=== PATIENT | male | born 1935 | race Caucasian/White ===

== ENCOUNTER 2018-08-03 21:30 | Inpatient (IN) | payer OTHER, MEDICARE ==
--- NOTE | 2018-08-03 21:46 | EDPHY ---
H & P Stated Complaint: [facility] fall down unknown #[id number]?. L shoulder pain, unsteady Time Seen by Provider: 08/03/18 21:45 HPI/ROS: HPI CHIEF COMPLAINT: Mechanical trip and fall, left shoulder pain. HISTORY OF PRESENT ILLNESS: 83-year-old male, who has unsteady gait at baseline per his , presents emergency room after was taking out the trash this evening at his backyard, which requires stairs. Unclear exactly what happened but the patient reports that he tripped over something. He fell backwards landing on his left shoulder. His main complaint is left shoulder pain. His tried to get him up off the ground however was unable to do so so 911 EMS was called. They brought him here to the emergency room. The patient denies any chest pain or shortness of breath, denies syncope. He reports that he slipped on the stair. He reports that he was going back inside up the stairs and got to the 1st stair and slipped. He did fall backwards with head strike. Past Medical History: Denies significant medical history except for hypertension, hyperlipidemia, some cognitive decline Past Surgical History: Denies recent surgery Social History: Lives locally at bedside. No drugs alcohol tobacco. Family History: Noncontributory ROS REVIEW OF SYSTEMS: 10 Systems were reviewed and negative with the exception of the elements mentioned in the history of present illness. Exam Constitutional triage nursing summary reviewed, vital signs reviewed, awake/ alert. Eyes normal conjunctivae and sclera, EOMI, PERRLA. HENT head and neck are atraumatic on exam moist mucus membranes, no epistaxis, neck supple/ no meningismus, no raccoon eyes. Respiratory clear to auscultation bilaterally, normal breath sounds, no respiratory distress, no wheezing. Cardiovascular rate normal, regular rhythm, no murmur, no edema, distal pulses normal. Gastrointestinal soft, non-tender, no rebound, no guarding, normal bowel sounds, no distension, no pulsatile mass. Genitourinary no CVA tenderness. Musculoskeletal Left shoulder: Neurovascularly intact with full range of motion care, good distal pulse, good cap refill, abrasion left posterior shoulder, with mild tender palpation over the left posterior scapula, additionally abrasion left upper arm humerus region, posterior, without any crepitus, full range of motion present, no midline vertebral tenderness, full range of motion, no calf swelling , no tenderness of extremities, no meningismus, good pulses, neurovascularly intact. Skin pink, warm, & dry, no rash, skin atraumatic. Neurologic awake, alert and oriented x 3, AAOx3, moves all 4 extremities equally, motor intact, sensory intact, CN II-XII intact, normal cerebellar, normal vision, normal speech. Psychiatric normal mood/affect. Heme/Lymph/Immune no lymphadenopathy. Differential Diagnosis: Includes but is not limited to in a particular order mechanical trip and fall, closed head injury, cervical spine injury, shoulder fracture, shoulder contusion Medical Decision Making: Plan for this patient CT scan head without contrast and a CT cervical spine without contrast, x-ray left shoulder. Re-evaluate Re-evaluation: CT scan head without contrast and CT cervical spine without contrast for trauma , fall, negative for acute traumatic injury called to me by Dr. Malik. Left shoulder x-ray negative for acute fracture. However seen on left shoulder x-ray there is a 6th left rib fracture. 2330, attempt to get patient up out of bed and walk on his own however he is unable to do so without great assistance. Patient is a fall risk. [facility] does not feel comfortable taking her home. Patient will need to be admitted the hospital overnight for observation. Chest x-ray reviewed shows a 4th 5th and 6th rib fracture. Left-sided. No pneumothorax I spoke with the hospitalist service Dr. Duarte agrees to admit EKG: Time of EKG 07/19/2045, sinus rhythm rate of 71, left anterior fascicular block. No significant ST elevation. Source: Patient - Personal History Current Tetanus/Diphtheria Vaccine: Unsure Current Tetanus Diphtheria and Acellular Pertussis (TDAP): Unsure - Medical/Surgical History Hx Asthma: No Hx Chronic Respiratory Disease: No Hx Diabetes: No Hx Cardiac Disease: No Hx Renal Disease: No Hx Cirrhosis: No Hx Alcoholism: No Hx HIV/AIDS: No Hx Splenectomy or Spleen Trauma: No Other PMH: HTN, high cholesterol - Social History Smoking Status: Never smoked Constitutional: Initial Vital Signs Temperature (C) 36.8 C 08/03/18 21:36 Heart Rate 77 08/03/18 21:36 Respiratory Rate 20 08/03/18 21:36 Blood Pressure 175/71 H 08/03/18 21:36 O2 Sat (%) 93 04/04/19 21:36 O2 Delivery Mode Room Air O2 (L/minute) 2 Allergies/Adverse Reactions: No Known Allergies Allergy (Unverified 08/03/18 21:34) Home Medications: Medication Instructions Recorded Ezetimibe [Zetia] 10 mg PO DAILY 08/03/18 Cyanocobalamin [Vitamin B12 (*)] 1,000 mcg PO DAILY@18 08/04/18 Docusate Sodium [Colace 100 MG (*)] 200 mg PO DAILY 08/04/18 Eye Drop Unk Name 1 drop EACHEYE PRN PRN 08/04/18 Herbals/Supplements -Info Only 1 ea PO DAILY 08/04/18 Lisinopril [Zestril 40 mg (*)] 40 mg PO DAILY 08/04/18 Methylcellulose [Fiber] 1,000 mg PO DAILY@18 08/04/18 [place]-3 Fatty Acids [Fish Oil 1000 1,000 mg PO BID@08/04/18 mg (*)] Triamcinolone 0.1% [Triamcinolone 1 conchita TP DAILY PRN 08/04/18 0.1% Cream (*)] amLODIPine BESYLATE [Norvasc 5 mg 5 mg PO DAILY@1800 08/04/18 (*)] Medical Decision Making - Data Points Laboratory Results: Laboratory Results 08/04/18 04:47 08/04/18 04:47 08/04/18 04:47 Hemoglobin A1c 6.3 % H % (4.0-6.0) Estim Average Glucose 134 mg/dL H mg/dL (68-126) Medications Given: Acetaminophen (Tylenol) 650 mg PO Q4HRS PRN PRN Reason: Pain, Mild/Fever, Can Take PO Stop: 01/31/19 00:36 Last Admin: 08/04/18 20:59 Dose: 650 mg Ibuprofen (Motrin) 400 mg PO Q8HRS PRN PRN Reason: Pain, Mild Stop: 01/31/19 04:08 Last Admin: 08/04/18 17:33 Dose: 400 mg Miscellaneous Information (Patch Removal) 1 ea TD DAILY21 TOMI Stop: 01/31/19 20:59 Last Admin: 08/04/18 20:57 Dose: 1 ea Miscellaneous Medication (Icy Hot Lidocaine/Menthol 4%/1% Patch) 1 patch TD DAILY TOMI Stop: 01/31/19 08:59 Last Admin: 08/04/18 08:19 Dose: 1 patch Polyethylene Glycol (Miralax) 17 gm PO DAILY TOMI PRN Reason: Protocol Stop: 01/31/19 09:59 Last Admin: 08/04/18 10:55 Dose: 17 gm Senna/Docusate Sodium (Senokot-S) 1 - 2 tab PO BID TOMI PRN Reason: Protocol Stop: 01/31/19 20:59 Last Admin: 08/04/18 20:57 Dose: 1 tab Discontinued Medications Sodium Chloride (Ns) 500 mls @ 0 mls/hr IV ONCE ONE PRN Reason: Wide Open Stop: 08/03/18 23:46 Last Admin: 08/03/18 23:45 Dose: 500 mls Departure - Departure Disposition: [facility] Inpatient Acute Clinical Impression: Rib fracture Qualifiers: Encounter type: initial encounter Rib fracture type: multiple ribs Fracture type: closed Laterality: left Qualified Code(s): S22.42XA - Multiple fractures of ribs, left side, initial encounter for closed fracture Fall Qualifiers: Encounter type: initial encounter Qualified Code(s): W19.XXXA - Unspecified fall, initial encounter Condition: Good
[2018-08-03] MEDS ORDERED: NS 1,000 ML IV ONE (23:37)
[2018-08-03 23:42] LABS: PLATELET COUNT 183 10^3/uL (150-400)
[2018-08-03] MEDS ORDERED: NS 500 ML IV ONE (23:45)
[2018-08-04] MEDS ORDERED: ONDANSETRON 4 MG/2 ML VIAL IVP PRN (00:37)
[2018-08-04] MEDS ORDERED: ONDANSETRON DISINTEGRATING 4 MG TAB PO PRN (00:37)
--- NOTE | 2018-08-04 01:33 | PDGENHP ---
History and Physical - History of Present Illness Source-patient able to provide majority of the history is fair historian. His has at bedside and supplements details. EMR was reviewed and case discussed with ED provider. HPI - this is a pleasant 83-year-old gentleman with a past medical history significant for HTN, HLD, murmur, tremor, mild memory deficits who presents emergency department today following a mechanical fall at home. Patient was trying to take the garbage to the trash can was returning and trying to step up into the home. He had a mechanical trip and fall backwards landing on his left side. His came out to find him on the ground on his left side. Patient denies any preceding lightheadedness, change in vision, syncope, chest pain, shortness of breath. He reports that he may have hit his head but denies any loss of consciousness. He is not on any anticoagulation and is on a daily aspirin. History Information - Allergies/Home Medication List Allergies/Adverse Reactions: No Known Allergies Allergy (Unverified 08/03/18 21:34) Home Medications: Aspirin [Aspirin 81mg (*)] 08/03/18 [Last Taken Unknown] Cyanocobalamin (Vitamin B-12) [Vitamin B12] 08/03/18 [Last Taken Unknown] Ezetimibe 08/03/18 [Last Taken Unknown] Ezetimibe [Zetia] 08/03/18 [Last Taken Unknown] Lisinopril 08/03/18 [Last Taken Unknown] News[place]-3 Fatty Acids [Newsoms-3] 08/03/18 [Last Taken Unknown] Psyllium Husk [Fiber] 08/03/18 [Last Taken Unknown] amLODIPine BESYLATE [Amlodipine Besylate] 08/03/18 [Last Taken Unknown] I have personally reviewed and updated: family history, medical history, social history, surgical history - Past Medical History Additional medical history: HTN, HLD, memory deficits, tremor - Surgical History Additional surgical history: History of hemorrhoidectomy x2. - Family History Additional family history: Mother-DM 2, father-HTN, CVA - Social History Smoking Status: Never smoked Alcohol Use: None Drug Use: None Additional social history: Patient is . Cor status full. Review of Systems Review of Systems: ROS: 10pt was reviewed & negative except for what was stated in HPI & below Constitutional: Reports: no symptoms EENMT: Reports: no symptoms Cardiac: Reports: no symptoms Respiratory: Reports: no symptoms Gastrointestinal: Reports: no symptoms Genitourinary: Reports: no symptoms Muscolosketal: Reports: other (Left-sided chest wall pain and left shoulder pain.) Skin: Reports: other (Left posterior upper arm with an abrasion and skin tear.) Neurological: Reports: tremors. Denies: anxiety, depressed, numbness, tingling Hematologic/Lymphatic: Reports: no symptoms Physical Exam Physical Exam: Selected Entries 08/03/18 21:36 Blood Pressure Automatic Method Heart Rate 77 Respiratory 20 Rate O2 Sat (%) 93 Temperature (C) 36.8 C Blood Pressure 175/71 H Mean Arterial 105 H Pressure (MAP) O2 Delivery Room Air Mode Temperature Oral Source Temp Pulse Resp BP Pulse Ox 36.8 C 78 18 122/74 H 91 L 08/03/18 21:36 08/04/18 00:58 08/04/18 00:58 08/04/18 00:58 08/04/18 00:58 Constitutional: no apparent distress, chronically ill appearing, uncomfortable, other (NAD. Pleasant elderly gentleman is lying quietly in bed and still. Does appear uncomfortable with movement of his chest or arms.) Eyes: PERRL (Pupils equal round slightly decreased reactivity light bilaterally but symmetric.) Ears, Nose, Mouth, Throat: moist mucous membranes, other (No nasal discharge.), No hard of hearing Cardiovascular: regular rate and rhythym, systolic murmur (2/6 musical quality murmur.), pulses symmetric bilaterally, edema (1+ pitting edema.) Peripheral Pulses: 1+: dorsalis-pedis (R), dorsalis-pedis (L) Respiratory: no respiratory distress, no rales or rhonchi, reduced air movement , No inspiratory crackles, No rhonchi Gastrointestinal: normoactive bowel sounds, soft, non-tender abdomen, no palpable masses, No distension Genitourinary: no bladder tenderness, No olivas in urethra Skin: warm, abrasion (Left posterior upper arm. Minimal abrasion to the posterior left shoulder.) Lab Data & Imaging Review 08/03/18 21:30 08/03/18 21:30 WBC 8.17 10^3/uL (3.80-9.50) 08/03/18 21:30 RBC 5.30 10^6/uL (4.40-6.38) 08/03/18 21:30 Hgb 16.3 g/dL (13.7-17.5) 08/03/18 21:30 Hct 48.0 % (40.0-51.0) 08/03/18 21:30 MCV 90.6 fL (81.5-99.8) 08/03/18 21:30 MCH 30.8 pg (27.9-34.1) 08/03/18 21: MCHC 34.0 g/dL (32.4-36.7) 08/03/18 21: RDW 13.0 % (11.5-15.2) 08/03/18 21: Plt Count 183 10^3/uL (150-400) 08/03/18 21: MPV 10.1 fL (8.7-11.7) 08/03/18 21: Neut % (Auto) 68.8 % (39.3-74.2) 08/03/18 21:30 Lymph % (Auto) 22.3 % (15.0-45.0) 08/03/18 21:30 Cannon % (Auto) 5.4 % (4.5-13.0) 08/03/18 21: Eos % (Auto) 0.9 % (0.6-7.6) 08/03/18 21: Baso % (Auto) 0.4 % (0.3-1.7) 08/03/18 21: Nucleat RBC Rel Count 0.0 % (0.0-0.2) 08/03/18 21:30 Absolute Neuts (auto) 5.63 10^3/uL (1.70-6.50) 08/03/18 21: Absolute Lymphs (auto) 1.82 10^3/uL (1.00-3.00) 08/03/18 21: Absolute Monos (auto) 0.44 10^3/uL (0.30-0.80) 08/03/18 21:30 Absolute Eos (auto) 0.07 10^3/uL (0.03-0.40) 08/03/18 21: Absolute Basos (auto) 0.03 10^3/uL (0.02-0.10) 08/03/18 21:30 Absolute Nucleated RBC 0.00 10^3/uL (0-0.01) 08/03/18 21:30 Immature Gran % 2.2 % (0.0-1.1) H 08/03/18 21:30 Immature Gran # 0.18 10^3/uL (0.00-0.10) H 08/03/18 21:30 Sodium 137 mEq/L (135-145) 08/03/18 21:30 Potassium 4.2 mEq/L (3.5-5.2) 08/03/18 21:30 Chloride 96 mEq/L (97-110) L 08/03/18 21:30 Carbon Dioxide 27 mEq/l (22-31) 08/03/18 21:30 Anion Gap 14 mEq/L (6-14) 08/03/18 21:30 BUN 12 mg/dL (7-23) 08/03/18 21:30 Creatinine 0.8 mg/dL (0.7-1.3) 08/03/18 21:30 Estimated GFR > 60 08/03/18 21:30 Glucose 174 mg/dL (70-100) H 08/03/18 21:30 Calcium 9.5 mg/dL (8.5-10.4) 08/03/18 21:30 Assessment & Plan Assessment: This is a pleasant 83-year-old gentleman with a past medical history significant for HTN, HLD, murmur, tremor, mild memory deficits who presents emergency department today following a mechanical fall at home. #Multiple Rib fractures (Acute) - the fractures due to trauma. No evidence of pneumothorax. Incentive spirometry will be ordered. Patient reports significant pain however notes that he does not do well with any narcotic medications which were not ordered previously. Tylenol, K-pad, ibuprofen, ice packs p.r.n.. #Mechanical Fall (Acute) - PT OT consultation #Hyperglycemia - no previous history of diabetes reported. This is nonfasting lab will plan to repeat BMP in the morning. #Benign essential HTN - blood pressures are acceptable at this time. Plan to resume patient's lisinopril #HLD - ezetimibe #Memory deficit - not a acute finding. at bedside supplements some details. #Tremor - tremor reported by at baseline. EKG was reviewed with significant artifact although read as atrial fibrillation patient does have P waves present for meeting criteria for first-degree AV block. FEN - diet as tolerated. Electrolyte monitoring replacement p.r.n.. Patient received IV fluid bolus 500 cc in the ED. Saline lock IV encourage p.o. Hydration. PPX - SCDs. Anticoagulation if patient should stay additional day. Cor status-full Disposition-patient admitted to observation status on the [facility] surge floor for additional evaluation by PT OT and for pain management of multiple left-sided rib fractures.
[2018-08-04] MEDS: ACETAMINOPHEN 325 MG TAB PO PRN ×3 (02:14→20:59)
[2018-08-04 05:08] LABS: PLATELET COUNT 126 10^3/uL (150-400)
[2018-08-04] MEDS: IBUPROFEN 200 MG TAB PO PRN ×2 (08:15→17:33)
[2018-08-04] MEDS: LIDOCAINE 4%/MENTHOL 1% PATCH TD SCH (08:19)
[2018-08-04] MEDS ORDERED: BISACODYL 10 MG SUPP PR PRN (09:46)
[2018-08-04] MEDS ORDERED: LACTULOSE 20 GM/30 ML UDCUP PO PRN (09:46)
[2018-08-04] MEDS ORDERED: MAGNESIUM HYDROXIDE 30 ML UDCUP PO PRN (09:46)
[2018-08-04] MEDS: POLYETHYLENE GLYCOL 3350 17 GM PKT PO SCH (10:55)
--- NOTE | 2018-08-04 11:25 | HOSPPROG ---
Hospitalist Progress Note Assessment/Plan: This is a pleasant 83-year-old gentleman with a past medical history significant for HTN, HLD, murmur, tremor, mild memory deficits who presents emergency department today following a mechanical fall at home. First encounter , chart reviewed. #Multiple Rib fractures (Acute) -supportive care, doesn't do well w narcotics -appreciate Dr Salvador seeing Thomas -needs aggressive pulmonary treatments #leukocytosis -stress induced #Mechanical Fall - PT OT seeing #Hyperglycemia -Check an a1c #Benign essential HTN -lisinopril #HLD - ezetimibe #Memory deficit - not a acute finding -ST evaluating him during my interviewed. #Tremor -ongoing, at his baseline. #plan: he will need another midnight stay, with his rib fx, fall and memory issues; high risk for falling. Suspect he will need increase level of care. Subjective: Thomas said his pain is well managed. Objective: Vital Signs Temp Pulse Resp BP Pulse Ox 37.1 C 64 16 124/58 H 94 08/04/18 07:33 08/04/18 07:33 08/04/18 07:33 08/04/18 07:33 08/04/18 07:33 Laboratory Results 08/04/18 04:47 08/04/18 04:47 08/03/18 08/04/18 08/05/18 05:59 05:59 05:59 Intake Total 500 Balance 500 - Physical Exam Constitutional: appears nourished, uncomfortable Eyes: PERRL Ears, Nose, Mouth, Throat: hard of hearing Cardiovascular: regular rate and rhythym, systolic murmur Respiratory: no respiratory distress, reduced air movement Gastrointestinal: normoactive bowel sounds Skin: warm Psychiatric: interacting appropriately, not anxious, not encephalopathic, thought process linear ICD10 Worksheet Patient Problems: Problems Problem Status Onset Fall Acute Rib fracture Acute
--- NOTE | 2018-08-04 11:44 | GCON ---
[f rep st] CONSULTATION DATE OF CONSULTATION: 08/04/2018 CHIEF COMPLAINT: Fall. HISTORY OF PRESENT ILLNESS: This is an 83-year-old male who presented to the emergency department evening after sustaining a mechanical fall. Briefly, per his and his 's report, he was taking the trash out to the back. There was about 7 or 8 steps. The patient initially said that he missed the last step and fell down. He was lying out there for about a minute, but the heard him call and she was out there immediately. She was then unable to get him back to his feet secondary to the pain. The patient did recall striking his head, but denies losing any consciousness. EMS was subse quently called and the patient was brought to the emergency room where he was evaluated. In the [facility] department, he was protecting his airway, his breathing was normal, and circulation was stable. He was complaining of left-sided posterior chest pain. He subsequently had imaging, which included a head CT, a C-spine CT, and a chest x-ray, as well as a shoulder x-ray, which confirmed multiple le ft-sided rib fractures. He was subsequently admitted to the medical service. This morning, he continues to complain of left-sided chest pain which is worse with activity and deep breathing. He has been using his incentive spirometer. He has no other complaints at this time. PAST MEDICAL HISTORY: Consistent for hypertension, hyperlipidemia, memory impairment, and a resting tremor. PAST SURGICAL HISTORY: Hemorrhoidectomy. FAMILY HISTORY: Noncontributory. SOCIAL HISTORY: He denies illicit drug use. . is at bedside. Currently lives independ ently with her in a multi-level home. He denies any illicit drug use. REVIEW OF SYSTEMS: A full 10-point review was performed. CURRENT MEDICATIONS: Include aspirin, vitamin B, ezetimibe, lisinopril, [place]-3, psyllium, and amlod ipine. ALLERGIES: None. PHYSICAL EXAMINATION: VITAL SIGNS: Temperature is currently 37.1, heart rate is 64, blood pressure is 124/58, heart rate is 64, and he is 94% on 2 L nasal cannula. CONSTITUTIONAL: He appears comfort able and is non-distressed. HEENT: Eyes: His pupils equal, round, and reactive to light and accomm odation. Ears, nose, mouth, throat: He has moist mucous membranes. His hearing is normal. His ear s appear normal. CARDIOVASCULAR: He has a regular rate and rhythm without any murmurs. RESPIRATORY : He has no respiratory distress, rales, or rhonchi. He is, otherwise, clear to auscultation bilate rally. He has no crepitus. He is tender to the left posterior chest to palpation. GI: Abdomen is soft, nondistended, nontender. SKIN: He has an abrasion to the left upper extremity adjacent to the elbow with some surrounding bruising. No other injuries other than a small hematoma on the posterio r head. MUSCULOSKELETAL: Full strength. No tenderness. Normal joint range of motion. NEUROLOGIC: He is alert and oriented x3. His cranial nerves 2 through 12 appear intact. He has no weakness or numbness. PSYCH: He is interacting appropriately. He is not anxious or encephalopathic. LYMPH/HE ME/IMMUNOLOGIC: He has no cervical, groin, or supraclavicular lymphadenopathy appreciated. LABORATORY: This morning, he has a leukocytosis to 12. His H and H are stable at [address] atelets are low at 126. His chemistry is remarkable for a low sodium at 134. His potassium is leia l at 4.2. His creatinine is normal at 0.7 and his glucose is elevated at 148. IMAGING: Includes a CT head, CT C-spine, a plain film of his chest, all of these images of which cesario hoffmann personally reviewed. CT head and C-spine are negative for any acute traumatic injury. Plain film of the shoulder is negative for any acute traumatic injury. The chest film shows an acute posterior left 4th, 5th, and 6th rib fracture without any hemopneumothorax. ASSESSMENT AND PLAN: 83-year-old male status post mechanical fall with 3 left-sided rib fractures. Discussed the importance of pulmonary toilet and incentive spirometer with the patient this morning. He is currently on oxygen and does not wear oxygen routinely at home. I did have him perform spirom etry at the bedside and he was easily able to green chain puller 1999. I asked him to continue to do this. Charisma hoffmann will continue to follow with you. Really, the [facility] of treatment for this is adequate pain cont rol providing him the ability to perform spirometry. We will continue to follow with you. /[id number]/MODL
--- NOTE | 2018-08-04 16:31 | PDMN ---
Medical Necessity Medical necessity: Change to IP, as of 08/04/18, per INVENTORY ACCOUNTANT & MCG [id number]; los >2 mn for ongoing management of 3 L-sided rib fxs s/p fall; requiring further monitoring, aggressive pulmonary txs & therapies; comorbid advanced age, memory deficit
[2018-08-04] MEDS: PATCH REMOVAL 1 EA PATCH TD SCH (20:57)
[2018-08-04] MEDS: SENNOSIDES/DOCUSATE SODIUM TAB PO SCH (20:57)
[2018-08-05] MEDS: ACETAMINOPHEN 325 MG TAB PO PRN ×2 (04:44→16:24)
--- NOTE | 2018-08-05 08:12 | CPEKG ---
Test Reason : OPEN Blood Pressure : / mmHG Vent. Rate : 071 BPM Atrial Rate : 076 BPM P-R Int : 184 ms QRS Dur : 104 ms QT Int : 406 ms P-R-T Axes : -47 -51 088 degrees QTc Int : 442 ms Atrial fibrillation Left anterior fascicular block Nonspecific T abnrm, anterolateral leads Confirmed by Arnoldo Bobby ([id number]) on 08/05/2018 8:11:57 AM Referred By: Arnoldo Bobby Confirmed By:Arnoldo Bobby
[2018-08-05] MEDS: SENNOSIDES/DOCUSATE SODIUM TAB PO SCH ×2 (09:35→20:57)
[2018-08-05] MEDS: POLYETHYLENE GLYCOL 3350 17 GM PKT PO SCH (09:35)
[2018-08-05] MEDS: LIDOCAINE 4%/MENTHOL 1% PATCH TD SCH (09:36)
--- NOTE | 2018-08-05 11:20 | ASMTCMCOM ---
CM Note CM Note Notes: PT is now recommending SNF/Rehab. CM spoke to [id number] who requested [facility]. Referrals were sent to both facilities, awaiting responses. Pt's 3 midnights will be met by tomorrow. D/C Plan: SNF/Rehab Date Signed: 08/05/2018 11:20 AM Electronically Signed By:Tori Jose
[2018-08-05] MEDS: IBUPROFEN 200 MG TAB PO PRN ×2 (11:21→20:55)
--- NOTE | 2018-08-05 15:15 | HOSPPROG ---
Hospitalist Progress Note Assessment/Plan: This is a pleasant 83-year-old gentleman with a past medical history significant for HTN, HLD, murmur, tremor, mild memory deficits who presents emergency department today following a mechanical fall at home. #Multiple Rib fractures (Acute) -supportive care, doesn't do well w narcotics -appreciate Dr Salvador seeing Thomas -needs aggressive pulmonary treatments #leukocytosis -stress induced #Mechanical Fall - PT OT seeing #Hyperglycemia -A1c is a bit elevated at 6.3 #Benign essential HTN -lisinopril #HLD - ezetimibe #Memory deficit - not a acute finding -ST evaluating him during my interviewed. #Tremor -ongoing, at his baseline. #plan: he will need a SNF, reviewed PT and OT notes. 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 Subjective: Thomas said his ribs hurt when he coughs. Objective: Vital Signs Temp Pulse Resp BP Pulse Ox 36.7 C 50 L 14 124/48 H 91 L 08/05/18 11:42 08/05/18 11:42 08/05/18 11:42 08/05/18 11:42 08/05/18 11:42 08/04/18 08/05/18 08/06/18 05:59 05:59 05:59 Intake Total 1000 Balance 1000 - Physical Exam Constitutional: uncomfortable Eyes: PERRL Ears, Nose, Mouth, Throat: hard of hearing Cardiovascular: regular rate and rhythym, systolic murmur Respiratory: no respiratory distress, clear to auscultation Gastrointestinal: normoactive bowel sounds Skin: warm Musculoskeletal: generalized weakness Psychiatric: interacting appropriately, not anxious, not encephalopathic ICD10 Worksheet Patient Problems: Problems Problem Status Onset Fall Acute Rib fracture Acute
[2018-08-05] MEDS: LISINOPRIL 40 MG TAB PO SCH (17:32)
[2018-08-05] MEDS: EZETIMIBE 10 MG TAB PO SCH (17:33)
[2018-08-05] MEDS: PATCH REMOVAL 1 EA PATCH TD SCH (21:01)
[2018-08-06] MEDS: ACETAMINOPHEN 325 MG TAB PO PRN ×2 (07:07→19:59)
[2018-08-06] MEDS ORDERED: EZETIMIBE 10 MG TAB PO SCH (09:00)
[2018-08-06] MEDS: LIDOCAINE 4%/MENTHOL 1% PATCH TD SCH (09:31)
[2018-08-06] MEDS: LISINOPRIL 40 MG TAB PO SCH (09:31)
[2018-08-06] MEDS: DOCUSATE SODIUM 100 MG CAP PO SCH (09:31)
[2018-08-06] MEDS: SENNOSIDES/DOCUSATE SODIUM TAB PO SCH ×2 (09:31→20:00)
[2018-08-06] MEDS: EZETIMIBE 10 MG TAB PO SCH (09:31)
[2018-08-06] MEDS: POLYETHYLENE GLYCOL 3350 17 GM PKT PO SCH ×2 (09:32→12:39)
--- NOTE | 2018-08-06 11:52 | ASMTCMCOM ---
CM Note CM Note Notes: Per [facility] patient and family wish to go to [facility] in [place]. Referral placed in allscripts with completed PASSR. CM to follow, likely to discharge tomorrow. Plan: To Snf. Date Signed: 08/06/2018 11:51 AM Electronically Signed By:Erma Meadows RN
--- NOTE | 2018-08-06 15:44 | TRAUMAPN ---
Trauma Progress Note Assessment/Plan: 83-year-old man status post mechanical fall with rib fractures of left 4 5 in 6. Chest x-ray stable. I personally reviewed his chest x-ray and there is no hemothorax or pneumothorax. He has good inspiratory effort. He will discharge to see if tomorrow. Case discussed with Yashira Sun. Trauma will sign off. We are available if additional concerns arise prior to discharge. Continue cough, deep breathing, incentive spirometer. C an follow up with primary care after discharge. I am also happy to see him in my office should they wish for a trauma follow-up Discussed case with his and his daughter. I also shared the x-rays with the family and showed them the findings. S: Sitting in bed. Pleasant and sleepy. Objective: Vital Signs Temp Pulse Resp BP Pulse Ox 36.6 C 53 L 16 140/64 H 90 L 08/06/18 12:00 08/06/18 12:00 08/06/18 12:00 08/06/18 12:00 08/06/18 12:00 Laboratory Results 08/06/18 04:48 08/05/18 08/06/18 08/07/18 05:59 05:59 05:59 Intake Total 1000 1250 Output Total 700 650 Balance 1000 550 -650 Physical Exam - Physical Exam General Appearance: WD/WN, alert, no apparent distress, other (Sleepy) EENT: PERRL/EOMI, hearing deficit, No scleral icterus (R), No scleral icterus (L ) Neck: non-tender, full range of motion Respiratory: chest non-tender, lungs clear, normal breath sounds, other ( Overall good breath sounds but slightly diminished on the left) Cardiac/Chest: regular rate, rhythm, No edema Abdomen: normal bowel sounds, non-tender, soft Skin: normal color, warm/dry Extremities: normal range of motion, non-tender Neuro/Psych: no motor/sensory deficits
[2018-08-06] MEDS ORDERED: [UNRECOGNIZED DRUG - REMARK] EACHEYE PRN (16:02)
--- NOTE | 2018-08-06 16:04 | HOSPPROG ---
Hospitalist Progress Note Assessment/Plan: This is a pleasant 83-year-old gentleman with a past medical history significant for HTN, HLD, murmur, tremor, mild memory deficits who presents emergency department today following a mechanical fall at home. #Multiple Rib fractures (Acute) -supportive care, doesn't do well w narcotics -reviewed today's chest x ray w the patient and his family -needs aggressive pulmonary treatments #leukocytosis -stress induced #Mechanical Fall - PT OT seeing #Hyperglycemia -A1c is a bit elevated at 6.3 #Benign essential HTN -lisinopril #HLD - ezetimibe #Memory deficit - not a acute finding -ST evaluating him during my interviewed. #Tremor -ongoing, at his baseline. #plan: [facility] in the morning. Subjective: Thomas said his left side hurts w deep breaths. Objective: Vital Signs Temp Pulse Resp BP Pulse Ox 36.6 C 53 L 16 140/64 H 90 L 08/06/18 12:00 08/06/18 12:00 08/06/18 12:00 08/06/18 12:00 08/06/18 12:00 Laboratory Results 08/06/18 04:48 08/05/18 08/06/18 08/07/18 05:59 05:59 05:59 Intake Total 1000 1250 Output Total 700 650 Balance 1000 550 -650 - Physical Exam Constitutional: uncomfortable Eyes: PERRL Ears, Nose, Mouth, Throat: hard of hearing Cardiovascular: regular rate and rhythym Respiratory: no respiratory distress Skin: warm Musculoskeletal: generalized weakness Psychiatric: interacting appropriately, poor memory ICD10 Worksheet Patient Problems: Problems Problem Status Onset Fall Acute Rib fracture Acute
[2018-08-06] MEDS: IBUPROFEN 200 MG TAB PO PRN (16:32)
[2018-08-06] MEDS ORDERED: amLODIPine BESYLATE 5 MG TAB PO SCH (18:00)
[2018-08-06] MEDS: PATCH REMOVAL 1 EA PATCH TD SCH (20:00)
[2018-08-07] MEDS: DOCUSATE SODIUM 100 MG CAP PO SCH (09:59)
[2018-08-07] MEDS: EZETIMIBE 10 MG TAB PO SCH (09:59)
[2018-08-07] MEDS: LIDOCAINE 4%/MENTHOL 1% PATCH TD SCH (09:59)
[2018-08-07] MEDS: SENNOSIDES/DOCUSATE SODIUM TAB PO SCH (09:59)
[2018-08-07] MEDS: LISINOPRIL 40 MG TAB PO SCH (10:00)
[2018-08-07 10:03] VITALS: BP 125/68
[2018-08-07] MEDS: POLYETHYLENE GLYCOL 3350 17 GM PKT PO SCH (10:03)
--- NOTE | 2018-08-07 10:45 | PDIAF ---
- Diagnosis Diagnosis: Fall Code Status: Full Code - Medication Management Discharge Medications: electronically signed and located in the Home Medication List. PICC Care - Routine: N/A - Orders Services needed: Registered Nurse, Physical Therapy, Occupational Therapy Diet Recommendation: no restrictions on diet Additional Instructions: 1. Alternate Tylenol and/or Motrin for pain control. 2. Incentive spirometer as prescribed 3. Please return to the emergency room if develops worsening symptoms. - Follow Up Care Current Providers and Referrals: Patient,NotPresent [Unknown] - As per Instructions
[2018-08-07] MEDS: IBUPROFEN 200 MG TAB PO PRN (11:13)
[2018-08-07] MEDS: ACETAMINOPHEN 325 MG TAB PO PRN (11:14)
--- NOTE | 2018-08-07 12:45 | ASMTLACE ---
LACE Length of stay for Answers: 3 days current admission Acuity / Level of Answers: Yes Care: Did the patient have an inpatient admission? Comorbidities - select Answers: History of falls all that apply Other Notes: HTN; HLD; Cognitive decline # of Emergency department Answers: 1-2 visits in the last 6 months Score: 11 Date Signed: 08/07/2018 11:26 AM Electronically Signed By:Alejandra Call LCSW
--- NOTE | 2018-08-07 13:25 | ASMTDCNOTE ---
Case Management Discharge Discharge Order Complete? Answers: Yes Patient to Obtain Answers: Other Notes: [facility] Medications Transportation Arranged Answers: Other Notes: wheelchair van through [facility] Faxed Final Orders Answers: Yes Notes: [facility] Agency/Facility Transfer Answers: Yes Notes: [facility] Report Printed & Faxed to Receiving Agency Family Notified Answers: Yes Notes: , Eugenia Discharge Comments Notes: Patient is discharging to [facility] today. Mirza at [phone] arranged transport wheelchair van for patient with hop picker time of 1:00 to 1:15. Discharge summaries have been Allscripted to [facility]. Nurse to nurse [phone] was called by Huong, patient's nurse. No further needs. Date Signed: 08/07/2018 11:44 AM Electronically Signed By:Alejandra Call LCSW
--- NOTE | 2018-08-07 15:03 | GDS ---
[f rep st] DISCHARGE SUMMARY DISCHARGE DIAGNOSES: 1. Multiple rib fractures. 2. Leukocytosis. 3. Mechanical fall. 4. Hyperglycemia. 5. Benign essential hypertension. 6. Hyperlipidemia. 7. Memory deficit. 8. Tremor. CONSULTATIONS: Raymond Salvador MD. PHYSICAL EXAM: GENERAL: The patient is alert. VITAL SIGNS: Afebrile at 37.1, pulse 56, respirator y rate 18, blood pressure 123/57, and he is saturating 90% on room air. I have seen and evaluated the patient on the day of discharge. HOSPITAL COURSE: The patient is an 83-year-old male, who presented to the emergency room after suffe ring a mechanical fall. He was evaluated and diagnosed with: 1. Multiple rib fractures. During this hospitalization, he received supportive care. His pain is s ignificantly improved, and he will require continued aggressive pulmonary treatment. 2. Leukocytosis. This is stress induced and is stable. No signs of infection at this time. 3. Mechanical fall. He will continue physical therapy and occupational therapy, and needs skilled n ursing rehabilitation. 4. Hyperglycemia. His A1c is 6.3. He will follow up with his primary care physician. 5. Benign essential hypertension. Lisinopril has been continued. 6. Hyperlipidemia. Medications have been continued. 7. Memory deficit. He is at his baseline per his 's statement. 8. Tremor. This is stable. 9. Disposition: The patient will be discharged to [facility] for further strength and conditioning. There are no pending studies. DISCHARGE MEDICATIONS: Please refer to EMR form. I have not discontinued the patient's previously p rescribed home medications. New medications include a lidocaine patch, as well as stool softeners an d pain medication. FOLLOWUP: Followup will be with Dr. Andie Carrillo, as well as the patient's primary care physician. TIME SPENT WITH PATIENT: I have spent greater than 35 minutes in the care, coordination, and managem ent of the patient's disposition. /[id number]/MODL
--- NOTE | 2018-08-07 17:25 | ASDISCHSUM ---
Discharge Information Plan Status: Medically Cleared to Leave: Discharge Date:08/07/2018 01:13 PM D/C Disposition: ADT D/C Disposition:Jail Facility Projected Discharge Date:08/07/2018 11:00 AM Transportation at D/C: Discharge Delay Reason: Follow-Up Date:08/07/2018 11:00 AM Discharge Slot: Final Diagnosis: Placement Information Referral Type:*Home Health Care Services Referral ID:[id number] Provider Name: Address 1: Phone Number: Address 2: Fax Number: City: Selection Factors: State: Referral Type:*Half-Way/SNF Referral ID:[id number] Provider Name:[facility] Address 1:[address] [place] [address] Address 2: City:[place] Selection Factors: State:[place] Patient Contact Information Contact Name:CONRADO Relationship: Address:[address] [place] [address] City:[place] Alternate Phone: State/Zip Code:[place] [address] Email: Financial Information Financial Class:Medicare Primary Plan Desc:MEDICARE INPATIENT Primary Plan Number:[id number] Secondary Plan Desc:VITA/CLAIR SUPPLEMENT Secondary Plan Number:[id number] Assessment Information LACE LACE Length of stay for Answers: 3 days current admission Acuity / Level of Answers: Yes Care: Did the patient have an inpatient admission? Comorbidities - select Answers: History of falls all that apply Other Notes: HTN; HLD; Cognitive decline # of Emergency department Answers: 1-2 visits in the last 6 months Score: 11 Date Signed: 08/07/2018 11:26 AM Electronically Signed By:Alejandra Call LCSW [facility] CM Progress Note CM Note CM Note Notes: PT is now recommending SNF/Rehab. CM spoke to [id number] who requested [facility]. Referrals were sent to both facilities, awaiting responses. Pt's 3 midnights will be met by tomorrow. D/C Plan: SNF/Rehab Date Signed: 08/05/2018 11:20 AM Electronically Signed By:Tori Jose [facility] AMARI Progress Note CM Note CM Note Notes: Per ENVIRONMENTAL MANAGER patient and family wish to go to [facility] in [place]. Referral placed in allscripts with completed PASSR. CM to follow, likely to discharge tomorrow. Plan: To Snf. Date Signed: 08/06/2018 11:51 AM Electronically Signed By:Erma Meadows RN Case Management Discharge Plan Note Case Management Discharge Discharge Order Complete? Answers: Yes Patient to Obtain Answers: Other Notes: [facility] Medications Transportation Arranged Answers: Other Notes: wheelchair van through [facility] Faxed Final Orders Answers: Yes Notes: [facility] Agency/Facility Transfer Answers: Yes Notes: [facility] Report Printed & Faxed to Receiving Agency Family Notified Answers: Yes Notes: , Eugenia Discharge Comments Notes: Patient is discharging to [facility] today. Mirza at [phone] arranged transport wheelchair van for patient with waste picker time of 1:00 to 1:15. Discharge summaries have been Allscripted to [facility]. Nurse to nurse [phone] was called by Huong patient's nurse. No further needs. Date Signed: 08/07/2018 11:44 AM Electronically Signed By:Alejandra Call LCSW Intervention Information Intervention Type:*[place]-Signed Date of Service:08/04/2018 02:09 PM Patient Type:Observation Staff Member:Jocelyne Capellan Hours: Discipline: Severity: Comment: Intervention Type:*IM-Signed Date of Service:08/07/2018 02:53 PM Patient Type:Inpatient Staff Member:Jocelyne Capellan Hours: Discipline: Severity: Comment:
== END 2018-08-07 13:13 | DRG 185 ==
LOC: EDUNIT# → F3N 08-04 01:31 → OBSVTOIN 08-04 16:03
PROVIDERS: ADMIT Family Medicine; ATTEND Internal Medicine
DX: S22.42XA Multiple fractures of ribs, left side, initial encounter for closed fracture (principal); W10.8XXA Fall (on) (from) other stairs and steps, initial encounter; Y92.017 Garden or yard in single-family (private) house as the place of occurrence of the external cause; R73.9 Hyperglycemia, unspecified; R26.9 Unspecified abnormalities of gait and mobility; I10 Essential (primary) hypertension; R25.1 Tremor, unspecified; E78.5 Hyperlipidemia, unspecified; R41.3 Other amnesia; Z79.82 Long term (current) use of aspirin
CPT/HCPCS: 92523-GN; 97116-GP; 97161-GP; 97165-GO; 97530-GO; 97535-GO